=== PATIENT | female | born 1955 | race Caucasian/White ===

== ENCOUNTER 2016-06-24 13:51 | Emergency (ER) | payer MEDICARE, OTHER ==
--- NOTE | 2016-06-24 14:24 | RAD ---
HISTORY: Neurological changes COMPARISONS: None TECHNIQUE: Multiple contiguous axial CT scans were obtained of the head without intravenous contrast. FINDINGS: HEMORRHAGE/INFARCT: There is no hemorrhage or acute infarct. MASSES/SHIFT: There is no mass or shift. EXTRA-AXIAL SPACES: There are no extra-axial fluid collections. SULCI AND VENTRICLES: The sulci and ventricles are normal in size and position for the patient's stated age. CEREBRUM: There is hypoattenuation of the periventricular and subcortical white matter. BRAINSTEM: There are no focal parenchymal abnormalities. CEREBELLUM: There are no focal parenchymal abnormalities. VESSELS: The vessels are grossly normal. PARANASAL SINUSES: The paranasal sinuses are clear. ORBITS: The orbits are unremarkable. BONES AND SOFT TISSUE: No bone or soft tissue abnormalities are noted. OTHER: None IMPRESSION: 1. NO ACUTE INTRACRANIAL PATHOLOGY. 2. CHRONIC SMALL VESSEL ISCHEMIC CHANGES. 3. CT IS RELATIVELY INSENSITIVE FOR THE DETECTION OF ACUTE ON CHRONIC ISCHEMIA. IF THERE IS PERSISTENT CLINICAL CONCERN FOR ACUTE INFARCT, MRI MAY BE MORE SENSITIVE. PRELIMINARY FINDINGS WERE DISCUSSED WITH DR. ZHOU IN THE EMERGENCY DEPARTMENT AT APPROXIMATELY 2:20 PM ON JUNE 24, 2016.
[2016-06-24 14:32] VITALS: BP 156/77
[2016-06-24 14:33] LABS: Hematocrit 43 % (35-47); Hemoglobin 14.2 g/dl (12.0-16.0); Mean Corpuscular HGB Conc 33 g/dl (31-36); Mean Corpuscular Hemoglobin 30 pg (27-31); Mean Corpuscular Volume 90 fL (80-97); Mean Platelet Volume 8 um3 (7.4-10.4); Red Blood Count 4.79 10^6/ul (4.0-5.4); Red Cell Distribution Width 14 % (10.5-15); White Blood Count 7.3 10^3/ul (3.5-10.8)
[2016-06-24 14:48] LABS: Albumin 3.5 g/dL (3.2-5.2); BUN/Creatinine Ratio 14.1 (8-20); Calcium 9.2 mg/dL (8.6-10.3); EGFR African American 122.1 (>60); Globulin 3.6 g/dL (2-4); HDL Cholesterol 52.2 mg/dL; Potassium 3.6 mmol/L (3.5-5.0); Total Bilirubin 0.4 mg/dL (0.2-1.0); Total Protein 7.1 g/dL (6.4-8.9)
--- NOTE | 2016-06-24 15:25 | RAD ---
Indication: Code mortensen. History of tobacco use. Comparison: None. Technique: Upright AP 1510 hours Report: Clear lungs and pleural spaces. Elevated lung volumes. Negative for cardiomegaly. Accounting for mild RIGHT convex curve of the thoracic spine the hilar and mediastinal contours are unremarkable. Unremarkable central pulmonary vasculature. Healed fracture of the RIGHT seventh rib laterally. IMPRESSION: Elevated lung volumes suggest potential obstructive lung disease. No acute cardiopulmonary process evident.
--- NOTE | 2016-06-24 16:20 | ED ---
Rober Wade Billy, scribed for Nam Rivers MD on 06/24/16 at 1433 . Neurological HPI - HPI Summary HPI Summary: Patient is a 61 year-old female coming to [facility] presenting with sudden onset of constant LUE numbness, weakness, and pain. She states that the symptoms began with no known cause approximately 3 hours prior to arrival. She states it feels as if her "hand is asleep." Nothing makes her symptoms better or worse. She also reports LLE weakness which she states has been chronic for many years. She denies any chest pain or SOB. She has a history of DVT and takes 6mg Coumadin daily. PMHx of DM, HLD, HTN. - History of Current Complaint Chief Complaint: EDNeurologicalDeficit Stated Complaint: LT ARM NUMBNESS Time Seen by Provider: 06/24/16 14:00 Hx Obtained From: Patient Onset/Duration: Sudden Onset, Started hours ago Timing: Constant Onset Severity: Moderate Current Severity: Moderate Neurological Deficit Location: LUE Character: Weak, Numbness/Tingling Aggravating: Nothing Alleviating: Nothing - Allergy/Home Medications Allergies/Adverse Reactions: Allergies Allergy/AdvReac Type Severity Reaction Status Date / Time Piperacillin [From Zosyn] Allergy Severe Rash And Verified 06/24/16 14:34 Itching Tazobactam [From Zosyn] Allergy Severe Rash And Verified 06/24/16 14:34 Itching PMH/Surg Hx/FS Hx/Imm Hx Endocrine/Hematology History: Reports: Hx Diabetes, Other Endocrine/ Hematological Disorders - DVT Cardiovascular History: Reports: Hx Hypercholesterolemia, Hx Hypertension GI History: Reports: Other GI Disorders - Gastric Bypass - Surgical History Surgery Procedure, Year, and Place: Gastric sleeve, hysterectomy, parathyroidectomy Infectious Disease History: No Infectious Disease History: Denies: Traveled Outside the [place] in Last 30 Days - Family History Known Family History: Positive: Cardiac Disease, Diabetes - Social History Alcohol Use: None Substance Use Type: Reports: None Smoking Status (MU): Heavy Every Day Tobacco Smoker - 2 ppd Review of Systems Negative: Chest Pain Negative: Shortness Of Breath Positive: Other - LUE pain Positive: Weakness, Numbness All Other Systems Reviewed And Are Negative: Yes Physical Exam - Summary Physical Exam Summary: VITAL SIGNS: Reviewed. GENERAL: Patient is an obese female who is lying comfortable in the stretcher. Patient is not in any acute respiratory distress. HEAD AND FACE: No signs of trauma. No ecchymosis, hematomas or skull depressions. EYES: PERRLA, EOMI x 2, No injected conjunctiva, EARS: Hearing grossly intact. Ear canals and tympanic membranes are within normal limits. MOUTH: Oropharynx within normal limits. NECK: Supple, trachea is midline, no adenopathy, no JVD, no carotid bruit CHEST: Symmetric, no tenderness at palpation LUNGS: Clear to auscultation bilaterally. No wheezing or crackles. CVS: Regular rate and rhythm, S1 and S2 present, no murmurs or gallops appreciated. ABDOMEN: Soft, non-tender. No signs of distention. No rebound no guarding, and no masses palpated. Bowel sounds are normal. EXTREMITIES: Right UE with weakness at the wrist "wrist drop". Good radial and ulnar pulses. Decrease sensation in the left hand, decrease muscle tone. LLE with chroninc lymphadema. NEURO: Alert and oriented x 3. NIH score is 1 SKIN: Dry and warm Triage Information Reviewed: Yes Vital Signs On Initial Exam: Initial Vitals Temp Pulse Resp BP Pulse Ox 97.5 F 69 18 156/77 98 06/24/16 13:55 06/24/16 13:55 06/24/16 13:55 06/24/16 13:55 06/24/16 13:55 Vital Signs Reviewed: Yes Diagnostics - Vital Signs Vital Signs Temp Pulse Resp BP Pulse Ox 06/24/16 13:55 97.5 F 69 18 156/77 98 - Laboratory Lab Results: Lab Results 06/24/16 Range/Units 14:26 Blood Type Pending Antibody Screen Pending Result Diagrams: 06/24/16 14:26 06/24/16 14:26 Lab Statement: Any lab studies that have been ordered have been reviewed, and results considered in the medical decision making process. - Radiology CXR Radiology Interpretation Completed By: Radiologist - Elevated lung volumes suggest potential obstructive lung disease. No acute cardiopulmonary process evident. - CT brain CT Interpretation Completed By: Radiologist - 1. NO ACUTE INTRACRANIAL PATHOLOGY. 2. CHRONIC SMALL VESSEL ISCHEMIC CHANGES. 3. CT IS RELATIVELY INSENSITIVE FOR THE DETECTION OF ACUTE ON CHRONIC ISCHEMIA. IF THERE IS PERSISTENT CLINICAL CONCERN FOR ACUTE INFARCT, MRI MAY BE MORE SENSITIVE. - EKG 1356 EKG Interpretation: NSR 72 bpm, LBBB, ST elevation in III and V1-V3. 1416 EKG Interpretation: NSR 63 bpm, LBBB, no ST elevation NIH Scale - NIH Scale Level of Consciousness: Alert/Keenly Responsive Ask Patient the Month and His/Her Age: Both Correct Ask Pt to Open/Close Eyes and Dance Critic/Release Non-Paretic Hand: Both Correctly Best Gaze (Only Horizontal Eye Movement): Normal Visual Field Testing: No Visual Loss Facial Paresis-Pt to Smile & Close Eyes or Grimace Symmetry: Normal/Symmetrical Motor Function - Right Arm: No Drift-Holds 10 Seconds Motor Function - Left Arm: Drifts LT 10 seconds - But only from the wrist down. Motor Function - Right Leg: No Drift-Holds 10 Seconds Motor Function - Left Leg: No Drift-Holds 10 Seconds Limb Ataxia-Must be out of Proportion to Weakness Present: Absent Sensory (Use Pinprick to Test Arms/Legs/Trunk/Face): Normal Best Language (Describe Picture, Name Items): No Aphasia Dysarthria (Read Several Words): Normal Extinction and Inattention: No Abnormality - NIH score is 1 Total Score: 1 Re-Evaluation - Re-Evaluation First Eval Re-Evaluation Time: 14:40 Course/Dx - Course Assessment/Plan: Patient is a 61 year-old female coming to [facility] presenting with sudden onset of constant LUE numbness, weakness, and pain. She states that the symptoms began with no known cause approximately 3 hours prior to arrival. She states it feels as if her "hand is asleep." Nothing makes her symptoms better or worse. She also reports LLE weakness which she states has been chronic for many years. She denies any chest pain or SOB. She has a history of DVT and takes 6mg Coumadin daily. PMHx of DM, HLD, HTN. Bloodwork WNL. First EKG shows ST elevations in III and V1-V3, but the patient has LBBB. We waited approximately 20 minutes and 2nd EKG shows LBBB. I discussed with Dr. Milton who also believes the patient has no ST elevation. Also, trop is 0.00 therefore there is no IL. CT brain shows no acute intracranial pathology. CXR shows COPD. I believe that the patient has a radial nerve palsy. However, I discussed with Dr. Ruffin from neurology who came and assessed the patient. After his assessment, he agrees that the patient has radial nerve palsy, so he recommends to discharge the patient with a splint and to follow up with her PCP and his office. Patient has no focal neurological deficits, A&Ox3. I also ruled out LUE ischemia since the patient has good pulses. Wrist splint was placed in the left wrist. - Differential Dx Differential Diagnoses Neuro: Positive: Cerebrovascular Accident, Coronary Artery Disease, Dysrhythmia, Transient Ischemic Attack - Radial nerve palsy - Diagnoses Provider Diagnoses: Radial nerve palsy During the Visit The Following Alert/Code Occurred: Code Dyer - Physician Notifications Discussed Care of Patient With: Dr. Nguyen (radiology) @ 1420: CT brain findings reviewed. Dr. Milton (cardiology) @ 1422: informed of the case, recommends repeat EKG. Dr. Milton (cardiology) @ 1446: repeat EKG today shows positive LBBB, no STEMI. Dr. Ruffin (neurology) @ 1456: will see patient in the ED. Discharge - Discharge Plan Condition: Stable Disposition: HOME Patient Education Materials: Radial Nerve Palsy (ED) Referrals: Devin Ruffin MD [Medical Doctor] - [facility] [Outside] The documentation as recorded by the Rober francisco Billy accurately reflects the service I personally performed and the decisions made by me, Nam Rivers MD.
--- NOTE | 2016-06-24 21:07 | CONS ---
NEUROLOGY CONSULTATION: DATE OF CONSULT: 06/24/16 - EMERGENCY DEPT REFERRING PHYSICIAN: Nam Rivers MD LOCATION: She is in the emergency room. CHIEF COMPLAINT: Left arm weakness and numbness. 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 She fell asleep in her chair and woke up about 11 a.m. with left wrist drop. She could raise her left hand up and noted when she put it into supination, she could flex the wrist. There is a diffuse sense of numbness and aching in the back of the hand and forearm. There is no new numbness or weakness of any other limbs or on her face. She was able to walk like she normally does. She presented to the emergency room for evaluation , was evaluated by Dr. Rivers. She had a CT scan of the brain interpreted as normal. No neck pain or headache. No recent falls. No new numbness of the legs and facial numbness or weakness. PAST MEDICAL HISTORY: Notable for hypertension; chronic deep vein thrombosis in her legs, on chronic anticoagulation; and chronic tobacco dependence. MEDICATIONS: She apparently is supposed to be on medications at home for hypertension, but the only thing she takes is Coumadin. She does not take aspirin or any other medicines on a regular basis besides gabapentin 300 mg, which she takes once or twice per day for chronic leg pain. She has oxycodone, but she says she has not taken in a long time. SOCIAL HISTORY: She smokes cigarettes every day. She does not drink alcohol. REVIEW OF SYSTEMS: Notable for chronic leg edema and leg pain. She gets short of breath easily. No chest pain. No headaches currently. No change in vision. No facial numbness. No difficulty with speech or language production. PHYSICAL EXAM: She has severe chronic edema of both legs, worse on the left. She is afebrile. Blood pressure in the monitors are 148/80, heart rate 70 and regular, and respiratory rate is about 18. Neck is supple. Heart is in a regular rate and rhythm without murmurs heard. There are no cervical bruits. Pulses in the wrists are normal. No palpable masses or hematomas in her left arm. Neck range of motion is nontender. she has severe LE edema with induration more in the left Neurologic Exam: Pupils react equally from 4 to 2.5 mm. Eye movements are normal. Visual medrano are full to confrontation. Funduscopic exam is normal bilaterally. Facial musculature and sensation are intact and symmetric. Palate and tongue appear normal. Dentition is poor. Speech is clear without dysarthria. Hearing is intact. Neck strength is normal. Motor exam reveals mild proximal weakness in the lower extremities, but otherwise normal strength in the legs. She has has normal strength in the right arm proximally and distally. She has normal strength in the left arm except for left wrist extensor grade I, finger extensors grade I, thumb extensor grade II, and brachioradialis grade II. When her wrist is put into neutral position, she has normal dorsal interossei strength and normal thenar strength. Normal strength in the biceps, triceps, and deltoid. Reflexes are intact and symmetric including the left supinator. I cannot get ankle reflexes and I cannot at her knee caps with the severe edema. Plantars are flexor bilaterally. I did not attempt to ambulate her. She is alert and oriented to person, place, and time. She is a good historian. Intact recent and remote memory. She has adequate attention, concentration, and fund of knowledge. DIAGNOSTIC STUDIES/LAB DATA: Includes a CT of the brain interpreted as showing chronic small vessel ischemic changes. I reviewed and I agree. CBC is within normal limits, platelet count 192,000. INR today is 1.28 and PTT 30.9. Chemistry profile today is notable for glucose 133 and otherwise had normal chemistry profile. IMPRESSION: Left retrohumeral radial neuropathy. She fell asleep in her chair and woke up with a pretty classic presentation. I advised her that there is a highly likelihood that it would resolve spontaneously probably within the next 2 to 4 week. I told her a small percentage of patients who develop severe radial neuropathy do not recover, but that is a small fraction of the total. I told her if it does not improve within the next few weeks, we could consider doing an electro-diagnostic studies. She should be provided with a cock-up wrist splint for use and I told her that to make sure she sleeps in a bed and keeps her left arm safe and padded. I have discussed by impression with Dr. Rivers. [id number]/[facility] #: [id number] [facility] N[facility]SING FACILITYFelipe
== END 2016-06-24 17:11 | disposition home or self-care (01) ==
LOC: ED 13:51
DX: G56.32 Lesion of radial nerve, left upper limb (principal); Z86.718 Personal history of other venous thrombosis and embolism; Z79.01 Long term (current) use of anticoagulants; E11.9 Type 2 diabetes mellitus without complications; E78.5 Hyperlipidemia, unspecified; I10 Essential (primary) hypertension; F17.210 Nicotine dependence, cigarettes, uncomplicated; I44.7 Left bundle-branch block, unspecified; R53.1 Weakness; J44.9 Chronic obstructive pulmonary disease, unspecified
CPT/HCPCS: 36415; 70450; 71010; 80053; 80061; 83605; 84484; 85025; 85610; 85730; 86850; 86900; 86901; 93005; 99284